=== PATIENT | female | born 2000 | race Caucasian/White ===

== ENCOUNTER → 2020-02-29 | Outpatient (CLI) | payer OTHER ==
[2020-02-29 13:27] LABS: HEMATOCRIT 34.9 % (36.0-47.0); HEMOGLOBIN 11.6 g/dl (12.0-15.5); MEAN CORPUSCULAR HEMOGLOBIN 29.4 pg (27.0-33.0); MEAN CORPUSCULAR HGB CONC 33.2 g/dl (32.0-36.5); MEAN CORPUSCULAR VOLUME 88.4 fl (80.0-96.0); PLATELET COUNT, AUTOMATED 409 10^3/uL (150-450); RED BLOOD COUNT 3.95 10^6/uL (4.00-5.40); WHITE BLOOD COUNT 11.8 10^3/uL (4.0-10.0)
[2020-02-29 14:33] LABS: HEPATITIS C VIRUS ABY INDEX 0.1 INDEX (<0.8)
== END ==
LOC: M LAB 11:27
PROVIDERS: ATTEND Obstetrics & Gynecology
DX: Z34.82 Encounter for supervision of other normal pregnancy, second trimester (principal); Z3A.00 Weeks of gestation of pregnancy not specified

== ENCOUNTER → 2020-04-01 | Outpatient (CLI) | payer OTHER ==
--- NOTE | 2020-04-03 07:31 | REP ---
INDICATION: SORAYA, SIZE 36 WEEKS COMPARISON: None. TECHNIQUE: Transabdominal obstetrical ultrasound with color Doppler evaluation. FINDINGS: Examination demonstrates a single live intrauterine in cephalic presentation. motion is identified by technologist. Placenta is noted anterior/right lateral and grade 2 without evidence for placenta previa or abruption. Amniotic fluid volume is normal. Cervix appears closed. Gestational age by LMP 36 weeks 6 days with ZO 04/23/2020. Gestational age by current measurements 35 weeks 3 days with ZO 05/03/2020. FHR equals 137 beats per minute. SORAYA: 12.0 cm (7.5-24.5) Umbilical artery S/D: 2.74 (1.60-3.44) Estimated weight by current biometric all measurements 2789 grams (29thpercentile). Anatomical assessment demonstrates normal structures including cranium, choroid plexus, cavum, cerebellum/posterior fossa, facial features, lungs, four-chamber heart/ventricular outflow tracts, diaphragm, stomach, cord insertion/three-vessel cord, kidneys/bladder, and spine. IMPRESSION: Limited examination due to advanced age. Anatomical assessment appears relatively normal and essentially complete although evaluation of the extremities was limited due to position/crowding. <Electronically signed by Home Fournier > 04/03/20 0705
== END ==
LOC: M RAD 09:40
PROVIDERS: ATTEND Advanced Practice Midwife
DX: O26.843 Uterine size-date discrepancy, third trimester (principal); Z3A.36 36 weeks gestation of pregnancy

== ENCOUNTER 2020-04-25 00:16 | Inpatient (IN) | payer OTHER ==
[2020-04-25] VITALS (51 sets, daily range): BP systolic 103–151; BP diastolic 53–94
[~2020-04-25] VITALS: Ht 165.1 cm; Wt 116.3 kg
[2020-04-25] MEDS ORDERED: LR 1,000 ML IV SCH (08:49)
[2020-04-25] MEDS ORDERED: AMPICILLIN SOD 2 GM in D5W MINI-BAG PLUS 100 ML IV STA (08:49)
[2020-04-25] MEDS ORDERED: LACTATED RINGER'S 1000 ML IV STA (08:49)
[2020-04-25] MEDS ORDERED: OXYTOCIN DRIP 30 UNITS in IV 1 EA IV SCH ×2 (09:00→18:19)
[2020-04-25] MEDS: LR 1,000 ML IV SCH ×3 (09:15→15:17)
[2020-04-25 09:37] LABS: HEMATOCRIT 37.4 % (36.0-47.0); HEMOGLOBIN 11.9 g/dl (12.0-15.5); MEAN CORPUSCULAR HEMOGLOBIN 28.5 pg (27.0-33.0); MEAN CORPUSCULAR HGB CONC 31.8 g/dl (32.0-36.5); MEAN CORPUSCULAR VOLUME 89.5 fl (80.0-96.0); PLATELET COUNT, AUTOMATED 445 10^3/uL (150-450); RED BLOOD COUNT 4.18 10^6/uL (4.00-5.40); WHITE BLOOD COUNT 16.7 10^3/uL (4.0-10.0)
[2020-04-25] MEDS ORDERED: FENTANYL 2MCG/ML ROPIVACAINE 0.2% IN 0.9% NACL 100ML IVBAG As Ordered ONE (10:11)
[2020-04-25] MEDS ORDERED: diphenhydrAMINE 50MG/ML VIAL (J1200) IV PRN (13:15)
[2020-04-25] MEDS ORDERED: REFRIGERATOR IV KEYS XX PRN (13:15)
[2020-04-25] MEDS ORDERED: ePHEDrine SULFATE 25 MG/5 ML(5MG/ML) SYRINGE IV PRN (13:15)
[2020-04-25] MEDS ORDERED: EPIDURAL COMMENT XX SCH (13:15)
[2020-04-25] MEDS ORDERED: NALOXONE INJ 0.4MG/1ML VIAL (J2310 PER 1MG) IV PRN (13:15)
[2020-04-25] MEDS ORDERED: FENTANYL/ROPIVACAINE/NACL BAG 100 ML EPIDURAL SCH (13:15)
[2020-04-25] MEDS ORDERED: EPIDURAL/PCA KEYS XX PRN (13:15)
[2020-04-25] MEDS ORDERED: ONDANSETRON 4MG/2ML VIAL IV PRN (13:15)
[2020-04-25] MEDS ORDERED: LACTATED RINGER'S 1000 ML IV PRN (13:15)
[2020-04-25] MEDS ORDERED: AMPICILLIN SOD 1 GM in D5W MINI-BAG PLUS 50 ML IV SCH (13:30)
[2020-04-25 18:22] LABS: CORD GAS ABE V -4.9; CORD GAS HCO3 V 20.8 MEQ/L; CORD GAS O2 SAT V 79.3 %; CORD GAS PCO2 V 41.3 mmHg; CORD GAS PH V 7.321 UNITS; CORD GAS TCO2 V 22.1 MEQ/L
[2020-04-25 18:24] LABS: CORD GAS HCO3 A 23.3 MEQ/L; CORD GAS O2 SAT A 45.1 %; CORD GAS PCO2 A 50.8 mmHg; CORD GAS PH A 7.279 UNITS; CORD GAS PO2 A 20.3 mmHg; CORD GAS SBC A 19.9 MEQ/L; CORD GAS TCO2 A 24.8 MEQ/L
[2020-04-25] MEDS ORDERED: IBUPROFEN 600MG TAB PO PRN (18:30)
[2020-04-25] MEDS ORDERED: METHYLERGONOVINE MALEATE 0.2 MG TAB PO PRN (18:30)
[2020-04-25] MEDS ORDERED: ACETAMINOPHEN TAB 650MG DOSE (2X325MG) PO PRN (18:30)
[2020-04-25] MEDS ORDERED: RHOGAM 300 MCG (1500 IU) INJ (J2790) IM SCH (18:30)
[2020-04-25] MEDS ORDERED: MEASLES,MUMPS,RUBELLA VACCINE INJ (MMR-II) (90707) SC SCH (18:30)
[2020-04-25] MEDS ORDERED: DOCUSATE SODIUM 100 MG CAP PO PRN (18:30)
[2020-04-25] MEDS ORDERED: DIBUCAINE 1% OINTMENT 30GM TOP PRN (18:30)
[2020-04-25] MEDS ORDERED: ACETAMINOPHEN 500 MG TAB PO PRN (18:30)
[2020-04-26 06:00] VITALS: BP 113/59
[2020-04-26] MEDS: PRENATAL VITAMINS CHEWABLE TABLET PO SCH (08:20)
[2020-04-26] MEDS: IBUPROFEN 800 MG TAB PO PRN ×2 (08:21→20:12)
--- NOTE | 2020-04-26 09:07 | HPE ---
DATE OF ADMISSION: 04/25/2020 Nikole is a 20-year-old female, 2, para 0-0-1-0 with and estimated date of confinement (EDC) of 04/24/2020, estimated gestational age (EGA) 40-1/7 weeks gestation who was admitted with complaints of contractions. After extensive monitoring evaluation she was found to be in early labor. At this point, a decision was made for admission. Her record reviewed, which was essentially unremarkable. LABORATORY: Blood type is AB positive, rubella immune, hepatitis negative, HIV negative, GC/chlamydia negative. One-hour sugar testing was within normal limits. Her GBS is positive. PAST MEDICAL HISTORY: She had history of trichomonas infection, which was treated. Test of cure was negative. PAST SURGICAL HISTORY: Denies. SOCIAL HISTORY: Denies any alcohol, drugs, or cigarette smoking. REVIEW OF SYSTEMS: Unremarkable. MEDICATIONS: vitamins. ALLERGIES: No known drug allergies. PHYSICAL EXAMINATION: Obese female in no acute distress. Abdomen soft, nontender, nondistended. Extremities: No clubbing, cyanosis, or edema. Vaginal exam: 4-5 cm dilated, 80% effaced. Fetus at -3 station with palpable membrane, in a vertex position. Tracing reviewed. Category 1 tracing. ASSESSMENT: 1. A 40-week gestation in early labor. 2. GBS positive. PLAN: Admit to labor and delivery. Routine labs sent. Pain management discussed. Patient opts for an epidural. Will start ampicillin for GBS prophylaxis. Will continue to monitor. Anticipate delivery. RASHID
--- NOTE | 2020-04-26 14:02 | DN ---
DATE OF DELIVERY: 04/25/2020 Nikole is a 20-year-old female, 2, para 0, 0, 1, 0, who was admitted at 40 and 1/7 weeks gestation in early labor. She progressed to fully dilated after artificial rupture of membranes and delivered a live female in right occiput anterior position. Apgars 8 and 9, weight 8 pounds. Placenta delivered spontaneously intact; three vessel cord. Perineum, vagina, cervix inspected, a small periurethral laceration noted, which was repaired using 2-0 Chromic. Estimated blood loss was 300 cc. Both mother and baby in stable condition. [facility]
[2020-04-26 18:00] VITALS: BP 140/67
[2020-04-27 06:00] VITALS: BP 112/66
[2020-04-27] MEDS: PRENATAL VITAMINS CHEWABLE TABLET PO SCH (09:14)
== END 2020-04-27 13:35 | disposition home or self-care (01) | DRG 560 ==
LOC: M LDO 00:16 → M LDI 08:49 → M OBS 20:47
PROVIDERS: ADMIT Obstetrics & Gynecology; ATTEND Obstetrics & Gynecology
PROC: 10E0XZZ Delivery of Products of Conception, External Approach (ICD-10-PCS; principal; 2020-04-25)
PROC: 0HQ9XZZ Repair Perineum Skin, External Approach (ICD-10-PCS; 2020-04-25)
DX: O99.824 Streptococcus B carrier state complicating childbirth (principal); Z37.0 Single live birth; Z3A.40 40 weeks gestation of pregnancy; O70.0 First degree perineal laceration during delivery

== ENCOUNTER 2020-04-30 11:59 | Emergency (ER) | payer OTHER ==
[~2020-04-30] VITALS: Ht 165.1 cm; Wt 106.1 kg
[2020-04-30] MEDS ORDERED: ACETAMINOPHEN 325 MG TAB PO ONE (12:45)
--- NOTE | 2020-04-30 12:55 | REPVR ---
PROCEDURE INFORMATION: Exam: CT Head Without Contrast Exam date and time: 04/30/2020 12:44 PM Age: 20 years old Clinical indication: Weakness, facial; Patient HX: Epidural two days ago; Additional info: Right sided headache; Right facial droop TECHNIQUE: Imaging protocol: Computed tomography of the head without contrast. Radiation optimization: All CT scans at this facility use at least one of these dose optimization techniques: automated exposure control; mA and/or kV adjustment per patient size (includes targeted exams where dose is matched to clinical indication); or iterative reconstruction. Other technique: STROKE PROTOCOL was implemented. COMPARISON: No relevant prior studies available. FINDINGS: Brain: Normal. No hemorrhage. Unremarkable white matter. No mass effect. Cerebral ventricles: No ventriculomegaly. Bones/joints: Unremarkable. No acute fracture. Paranasal sinuses: Visualized sinuses are unremarkable. No fluid levels. Mastoid air cells: Visualized mastoid air cells are well aerated. Soft tissues: Unremarkable. IMPRESSION: No acute intracranial abnormality. ASSESSMENT: ASPECTS ([place] Stroke Program Early CT Score) is 10. Electronically signed by: [place] On 04/30/2020 12:55:16 PM
[2020-04-30 13:10] LABS: BASO % 0.4 % (0.0-1.0); EOS # 0.6 10^3/uL (0.0-0.5); EOS % 7.5 % (0.0-3.0); HEMATOCRIT 39.4 % (36.0-47.0); HEMOGLOBIN 12.8 g/dl (12.0-15.5); LYMPH # 1.8 10^3/uL (1.5-5.0); LYMPH % 22.6 % (24.0-44.0); MEAN CORPUSCULAR HGB CONC 32.5 g/dl (32.0-36.5); MEAN CORPUSCULAR VOLUME 89.1 fl (80.0-96.0); MONO # 0.6 10^3/uL (0.0-0.8); MONO % 7.1 % (0.0-5.0); NEUTROPHILS # 4.9 10^3/uL (1.5-8.5); NEUTROPHILS % 61.6 % (36.0-66.0); PLATELET COUNT, AUTOMATED 486 10^3/uL (150-450); RED BLOOD COUNT 4.42 10^6/uL (4.00-5.40)
[2020-04-30 13:35] LABS: ALBUMIN 3.3 GM/DL (3.2-5.2); ALT/SGPT 33 U/L (12-78); BILIRUBIN,TOTAL 0.8 MG/DL (0.2-1.0); BLOOD UREA NITROGEN 9 MG/DL (7-18); CALCIUM LEVEL 9.3 MG/DL (8.5-10.1); CARBON DIOXIDE LEVEL 28 MEQ/L (21-32); CHLORIDE LEVEL 106 MEQ/L (98-107); CREATININE FOR GFR 0.68 MG/DL (0.55-1.30); GLUCOSE, FASTING 79 MG/DL (70-100); POTASSIUM SERUM 3.9 MEQ/L (3.5-5.1); SODIUM LEVEL 139 MEQ/L (136-145); TOTAL PROTEIN 7.6 GM/DL (6.4-8.2)
[2020-04-30] MEDS ORDERED: MINE3.5O12 OD (13:43)
[2020-04-30] MEDS ORDERED: VALA1TAB5 PO (13:43)
[2020-04-30] MEDS ORDERED: PRED10TA2 PO (13:43)
[2020-04-30 14:26] VITALS: BP 135/67
[2020-05-01 13:08] LABS: Lyme Disease IgG/IgM Antibodie <0.91 ISR (0.00-0.90); Lyme Disease IgM Ab Quantitati <0.80 index (0.00-0.79)
== END 2020-04-30 14:30 | disposition home or self-care (01) ==
LOC: M ED 11:59
DX: G51.0 Bell's palsy (principal); F17.200 Nicotine dependence, unspecified, uncomplicated; Z79.899 Other long term (current) drug therapy

== ENCOUNTER 2020-09-21 10:38 | Emergency (ER) | payer OTHER ==
[~2020-09-21] VITALS: Ht 165.1 cm; Wt 97.1 kg
[~2020-09-21 10:38] MED LIST: MINE3.5O12 OD; PRED10TA2 PO; VALA1TAB5 PO
[2020-09-21] MEDS ORDERED: FLUO20CA22 (10:46)
[2020-09-21 11:45] LABS: HEMATOCRIT 44.1 % (36.0-47.0); HEMOGLOBIN 14.5 g/dl (12.0-15.5); MEAN CORPUSCULAR HEMOGLOBIN 28.7 pg (27.0-33.0); MEAN CORPUSCULAR HGB CONC 32.9 g/dl (32.0-36.5); MEAN CORPUSCULAR VOLUME 87.3 fl (80.0-96.0); PLATELET COUNT, AUTOMATED 386 10^3/uL (150-450); RED BLOOD COUNT 5.05 10^6/uL (4.00-5.40)
[2020-09-21 12:06] LABS: HCG, SERUM QUALITATIVE NEGATIVE (NEGATIVE)
[2020-09-21 12:39] LABS: ALT/SGPT 22 IU/L (0-32); BLOOD UREA NITROGEN 11 MG/DL (7-18); CALCIUM LEVEL 9.2 MG/DL (8.5-10.1); CARBON DIOXIDE LEVEL 22 mmol/L (20-29); CHLORIDE LEVEL 112 MEQ/L (98-107); CREATININE FOR GFR 0.67 MG/DL (0.55-1.30); GLUCOSE, FASTING 96 MG/DL (70-100); POTASSIUM SERUM 4.1 MEQ/L (3.5-5.1); SODIUM LEVEL 140 MEQ/L (136-145)
[2020-09-21 12:40] LABS: ACETAMINOPHEN LEVEL < 2.0 UG/ML (10.0-30.0); ALBUMIN 4.1 GM/DL (3.2-5.2); BILIRUBIN,DIRECT 0.2 MG/DL (0.0-0.2); BILIRUBIN,TOTAL 0.9 MG/DL (0.2-1.0); ETHYL ALCOHOL (ETHANOL) < 0.003 % (0.000-0.010); THYROID STIMULATING HORMONE 0.508 uIU/ML (0.463-3.98); TOTAL PROTEIN 7.3 GM/DL (6.4-8.2)
[2020-09-21 13:16] VITALS: BP 129/64
[2020-09-21 13:54] LABS: AMPHETAMINES LEVEL URINE NEGATIVE (NEGATIVE); BARBITURATES URINE NEGATIVE (NEGATIVE); BENZODIAZEPINES URINE NEGATIVE (NEGATIVE); CANNABINOIDS URINE POSITIVE (NEGATIVE); COCAINE METABOLITE URINE POSITIVE (NEGATIVE); METHADONE URINE NEGATIVE (NEGATIVE); OPIATES URINE NEGATIVE (NEGATIVE); PHENCYCLIDINE URINE NEGATIVE (NEGATIVE)
== END 2020-09-21 13:26 | disposition home or self-care (01) ==
LOC: M ED 10:38
DX: F32.9 Major depressive disorder, single episode, unspecified (principal); F17.200 Nicotine dependence, unspecified, uncomplicated; Z79.51 Long term (current) use of inhaled steroids; Z79.899 Other long term (current) drug therapy